=== PATIENT | female | born 1945 | race Caucasian/White ===

== ENCOUNTER → 2020-08-03 | Outpatient (CLI) | payer MEDICARE, BC | LOC: RAD 07-27 17:45 → VAS 15:10 → RAD 15:45 | DX: I10 Essential (primary) hypertension (principal); R01.1 Cardiac murmur, unspecified ==

== ENCOUNTER → 2022-08-10 | Outpatient (CLI) | payer MEDICARE, BC | LOC: RAD 13:18 | DX: M16.0 Bilateral primary osteoarthritis of hip (principal) ==